=== PATIENT | male | born 1960 | race Caucasian/White ===

== ENCOUNTER 2017-05-09 14:08 | Emergency (ER) | payer BC ==
[~2017-05-09] VITALS: Ht 182.9 cm; Wt 104.3 kg
[2017-05-09] MEDS ORDERED: Morphine Sulfate 4mg/ml Inj IVP ONE (14:15)
[2017-05-09 14:16] VITALS: BP 130/83
--- NOTE | 2017-05-09 15:04 | Emergency Room Report ---
History of Present Illness General Chief Complaint: Multiple Trauma/Fall Source: Patient (ONDNIA GOSS) Present Illness HPI The patient is a 57 yo M BIBA for R ankle pain. The patient states that he felt the R ankle fold underneath him and then fell onto it. Pain is a 10/10 dull ache to the R ankle and does not radiate. He is unable to bear weight onto the R foot. He denies numbness or tingling. He denies any other injury such as hitting his head. (ONDINA GOSS) Allergies: Coded Allergies: ASPIRIN (Verified Allergy, Unknown, 05/09/17) Patient History Past Medical History: see triage record Pertinent Family History: none Reviewed Nursing Documentation: PMH: Agreed, PSxH: Agreed (ONDINA GOSS) Nursing Documentation-PMH Past Medical History: No Stated History (ONDINA GOSS) Review of Systems All Other Systems: negative except mentioned in HPI (ONDINA GOSS) Physical Exam Vital Signs Date Time Temp Pulse Resp B/P Pulse Ox O2 Delivery O2 Flow Rate FiO2 05/09/17 13:55 98.6 49 18 128/73 98 Room Air (ONDINA GOSS P.ADemetria) Procedures Splinting Splinting : Consent: Verbal Hand-Made Type: plaster Splint: Sugar tong and posterior splint placed of right ankle (PHYLLIS HARRIS M.D.) Medical Decision Making PA Attestation Dr. Harris is my supervising physician. Patient management was discussed with my supervising physician (ONDINA GOSS) Diagnostic Impression: Primary Impression: Pilon fracture of right tibia Qualified Codes: S82.874A - Nondisplaced pilon fracture of right tibia, initial encounter for closed fracture ER Course See PA's note for HPI, PE, A/P Spoke to Dr Hong re patient's pilon fracture - comminuted distal right tibial fracture involving medial and posterior malleoli Dr Hong believes patient needs external fixation device and likely surgical repair - recommends higher level of care transfer to [facility] I spoke to Dr Sauceda as the accepting physician for transfer. (PHYLLIS HARRIS M.D.) Other X-Ray Diagnostic Results Other X-Ray Diagnostic Results : # of Views/Limited Vs Complete: 3 View EP Interpretation: Yes Interpretation: no soft tissue swelling, other - fracture of posterior and medial malleoli Indication: Pain Impression: Other - Pilon fracture (PHYLLIS HARRIS M.D.) Last Vital Signs Date Time Temp Pulse Resp B/P Pulse Ox O2 Delivery O2 Flow Rate FiO2 05/09/17 14:16 98.6 56 11 130/83 100 Room Air (ONDINA GOSS.Yonas) Status: improved (PHYLLIS HARRIS M.D.) Disposition: ADMITTED INPATIENT Condition: Serious Scripts Hydrocodone Bit/Acetaminophen 10-325* (NORCO 10-325*) 1 Each Tablet 1 TAB ORAL Q6H Y for For Pain, #10 TAB 0 Refills PRN PAIN Prov: ONDINA GOSS P.ADemetria 05/09/17 Ibuprofen* (MOTRIN*) 600 Mg Tablet 600 MG ORAL Q8H Y for For Pain, #30 TAB 0 Refills Prov: ONDINA GOSS P.ADemetria 05/09/17 Referrals: NON PHYSICIAN (PCP) ONDINA GOSS May 09, 2017 15:04 PHYLLIS HARRIS M.D. May 09, 2017 17:02
[2017-05-09] MEDS ORDERED: NORCO 10-325 T1 EACH ORAL (15:35)
[2017-05-09] MEDS ORDERED: IBUPROFEN600 MG ORAL (15:35)
[2017-05-09 16:15] LABS: BASOPHILS % (AUTO) 1.2 % (0.0-2.0); EOSINOPHILS % (AUTO) 2.2 % (0.0-3.0); LYMPHOCYTES % (AUTO) 27.3 % (20.0-45.0); MEAN CORPUSCULAR HEMOGLOBIN 32.1 PG (27.0-31.0); MEAN CORPUSCULAR HGB CONC 34.9 G/DL (32.0-36.0); MEAN CORPUSCULAR VOLUME 92 FL (80-99); MEAN PLATELET VOLUME 8.7 FL (6.5-10.1); MONOCYTES % (AUTO) 7.6 % (1.0-10.0); NEUTROPHILS % (AUTO) 61.7 % (45.0-75.0); PLATELET COUNT 202 K/UL (150-450); RED BLOOD COUNT 4.38 M/UL (4.70-6.10); RED CELL DISTRIBUTION WIDTH 10.9 % (11.6-14.8); WHITE BLOOD COUNT 5.3 K/UL (4.8-10.8)
[2017-05-09] MEDS ORDERED: fentaNYL 100 mcg/2 mL IV ONE (16:15)
[2017-05-09 16:24] VITALS: BP 142/89
[2017-05-09] MEDS ORDERED: NKM (16:38)
[2017-05-09 16:57] LABS: INR 1.1 (0.9-1.1); PROTHROMBIN TIME 11.5 SEC (9.30-11.50)
[2017-05-09 16:58] LABS: ALBUMIN/GLOBULIN RATIO 1.8 (1.0-2.7); CALCIUM 8.9 mg/dL (8.6-10.2); CREATININE 1.3 mg/dL (0.7-1.2); GLOMERULAR FILTRATION RATE 56.5 mL/min (>60); POTASSIUM 4.2 mEQ/L (3.4-4.9); TOTAL PROTEIN 6.3 g/dL (6.6-8.7)
[2017-05-09 17:57] VITALS: BP 118/62
[2017-05-09 18:41] VITALS: BP 132/76
--- NOTE | 2017-05-10 11:15 | Cardiology Report ---
APPROVED REPORT EKG Measurement Heart [id number] [place] [id number] Normal sinus rhythm Normal ECG
== END 2017-05-09 18:15 | disposition short-term general hospital (02) ==
LOC: EDBD 14:08 → EMR 14:28
DX: S82.874A Nondisplaced pilon fracture of right tibia, initial encounter for closed fracture (principal); X50.9XXA Other and unspecified overexertion or strenuous movements or postures, initial encounter; Y92.89 Other specified places as the place of occurrence of the external cause; Z88.6 Allergy status to analgesic agent
CPT/HCPCS: 29515; 36415; 73610; 80053; 85025; 85610; 85730; 86850; 86900; 86901; 93005; 96374; 96375; 99285; J2270; J3010